=== PATIENT | male | born 1990 | race Caucasian/White ===

== ENCOUNTER 2022-08-13 20:44 | Inpatient (IN) | payer MEDICAID ==
[~2022-08-13] VITALS: Ht 170.2 cm; Wt 96.2 kg
[2022-08-13 21:10] VITALS: BP 119/81
--- NOTE | 2022-08-13 21:18 | NUR ---
PT TAKEN TO BED 5
--- NOTE | 2022-08-13 21:26 | NUR ---
Ultrasound at bedside.
--- NOTE | 2022-08-13 21:28 | NUR ---
Dr. Dominguez examining patient.
[2022-08-13 21:55] LABS: BASOPHILS # (AUTO) 0.1 K/uL (0.00-0.22); BASOPHILS % (AUTO) 0.6 % (0.0-2.0); EOSINOPHILS # (AUTO) 0.2 K/uL (0-0.4); EOSINOPHILS % (AUTO) 2.1 % (0.0-4.0); HEMATOCRIT 41.5 % (36-52); HEMOGLOBIN 13.6 g/dL (12.0-18.0); MEAN CORPUSCULAR HEMOGLOBIN 28 pg (27-31); MEAN CORPUSCULAR HGB CONC 33 g/dL (33-37); MEAN CORPUSCULAR VOLUME 86.2 fL (80-94); MONOCYTES # (AUTO) 0.9 K/uL (0.8-1.0); MONOCYTES % (AUTO) 9.9 % (1.7-9.3); NEUTROPHILS # (AUTO) 4.6 K/uL (1.8-7.7); NEUTROPHILS % (AUTO) 53.4 % (42.2-75.2); PLATELET COUNT (AUTO) 183 K/uL (140-450); RED BLOOD CELL COUNT(AUTO) 4.81 MIL/uL (4.20-6.10); WHITE BLOOD COUNT (AUTO) 8.7 K/uL (4.8-10.8)
--- NOTE | 2022-08-13 22:04 | NUR ---
X-Ray at bedside.
[2022-08-13 22:08] LABS: PROTHROMBIN TIME 10.6 secs (10.8-13.4)
[2022-08-13 22:11] LABS: ALBUMIN 3.6 g/dL (3.4-5.0); ANION GAP 16.8 (8-16); CARBON DIOXIDE 23.2 mmol/L (21-32); CREATININE 1.4 mg/dL (0.6-1.3); TOTAL BILIRUBIN 0.2 mg/dL (0.0-1.0)
--- NOTE | 2022-08-13 22:15 | NUR ---
Patient received on bed lying comfortably and awake. Alert and awake x4. No acute distress. Complained of right leg pain with scale of 7/10. Respirations even and unlabored.
[2022-08-13] MEDS ORDERED: NACL 0.9% 2,000 ML IV ONE (22:20)
[2022-08-13] MEDS ORDERED: MORPHINE SULFATE 2 MG/ML SYR IVP STA (22:40)
[2022-08-13] MEDS ORDERED: HEPARIN PER PHARMACY MC STA (23:07)
[2022-08-13] MEDS ORDERED: hePARIN / DEXT 5% PREMIX 250 ML IV ONE (23:10)
--- NOTE | 2022-08-13 23:15 | NUR ---
COVID-19 swabs collected and sent to lab.
[2022-08-13] MEDS ORDERED: hePARIN / DEXT 5% PREMIX 250 ML IV SCH (23:35)
[2022-08-13] MEDS ORDERED: ONDANSETRON 4 MG/2 ML VIAL IM/IVP PRN (23:35)
[2022-08-13] MEDS ORDERED: DOCUSATE SODIUM 100 MG GELCAP PO PRN (23:35)
[2022-08-13] MEDS ORDERED: POTASSIUM CHLORIDE 10 MEQ TABER PO PRN (23:35)
[2022-08-13] MEDS ORDERED: ZOLPIDEM 5 MG TAB PO PRN (23:35)
[2022-08-13] MEDS ORDERED: HYDROcodone/APAP 7.5/325 MG 1 TAB PO PRN (23:35)
[2022-08-13] MEDS ORDERED: HEPARIN PER PHARMACY MC PRN (23:35)
[2022-08-13] MEDS ORDERED: guaiFENesin DM 200/20 MG-10 ML 10 ML UDC PO PRN (23:35)
[2022-08-13] MEDS ORDERED: ACETAMINOPHEN 325 MG TAB PO PRN (23:35)
--- NOTE | 2022-08-14 00:06 | NUR ---
PT TAKEN TO RADIOLOGY
[2022-08-14 00:14] LABS: CHOL/HDL RATIO 5.4 (1-4.5); FREE T4 (FREE THYROXINE) 1.14 ng/dL (0.76-1.46); MAGNESIUM 1.7 mg/dL (1.8-2.4); PHOSPHORUS 3.5 mg/dL (2.5-4.9)
[2022-08-14 00:15] LABS: THYROID STIMULATING HORMONE 1.04 uIU/mL (0.34-3.74)
--- NOTE | 2022-08-14 00:26 | NUR ---
Patient returned back from CT scan.
[2022-08-14] MEDS: hePARIN / DEXT 5% PREMIX 250 ML IV SCH ×3 (00:28→16:59)
[2022-08-14 00:50] VITALS: BP 139/79
--- NOTE | 2022-08-14 00:50 | NUR ---
RECEIVED PATIENT FROM ED, CAME VIA GURNEY, PATIENT IS AWAKE, ALERT AND ORIENTED X4, IN NO ACUTE DISTRESS, ON ROOM AIR, DENIES PAIN. PATIENT ABLE TO WALK FROM GURNEY TO BED WITH STEADY GAIT. PATIENT'S DIAGNOSIS IS BILATERAL DVT. PATIENT IS ON HEPARIN DRIP, RATE 14ML/HR. IV ACCESS SITE ON RIGHT HAND AND LEFT AC G 20, PATENT AND INTACT. SKIN CHECK DONE, NO SKIN ISSUES NOTED. MRSA DONE. PATIENT ORIENTED TO ROOM SETTING. CALL LIGHT WITHIN REACH. ALL SAFETY MEASURES IN PLACE.
--- NOTE | 2022-08-14 00:57 | NUR ---
Patient will be admitted to care of Dr. Hickman. Admited to Telemetry. Will go to room 119B. Belongings list completed. Report to BRITTANY Rizo.
[2022-08-14] MEDS: NACL 0.9% 1,000 ML IV SCH ×4 (01:29→21:50)
--- NOTE | 2022-08-14 03:40 | NUR ---
DR. SCOTT LACKEY NOTIFIED THIS STAFF THAT PATIENT'S CT OF THE CHEST RESULT, PT HAS PULMONARY EMBOLISM. AT 0405, DR. LLAMAS WAS NOTIFIED OF THE RESULT. AWAITING RESPONSE. PATIENT ADVISED BED REST. PATIENT IS ON HEPARIN DRIP. WILL CONTINUE TO MONITOR THE PATIENT.
[2022-08-14 04:00] VITALS: BP 150/82
--- NOTE | 2022-08-14 05:30 | NUR ---
PATIENT IS ASLEEP, BREATHING EVEN AND NON LABORED, NO SIGNS OF PAIN NOTED. WILL CONTINUE TO MONITOR THE PATIENT.
--- NOTE | 2022-08-14 07:23 | NUR ---
ENDORSED PATIENT TO DAY NURSE FOR CONTINUITY OF CARE. PATIENT IN STABLE CONDITION.
[2022-08-14 07:49] LABS: BASOPHILS % (AUTO) 0.6 % (0.0-2.0); EOSINOPHILS # (AUTO) 0.2 K/uL (0-0.4); EOSINOPHILS % (AUTO) 2.6 % (0.0-4.0); HEMATOCRIT 35.6 % (36-52); HEMOGLOBIN 11.7 g/dL (12.0-18.0); LYMPHOCYTES # (AUTO) 3.3 K/uL (2.0-11.5); LYMPHOCYTES % (AUTO) 46.1 % (20.5-51.1); MEAN CORPUSCULAR HEMOGLOBIN 28 pg (27-31); MEAN CORPUSCULAR HGB CONC 33 g/dL (33-37); MEAN CORPUSCULAR VOLUME 85.8 fL (80-94); MONOCYTES # (AUTO) 0.5 K/uL (0.8-1.0); MONOCYTES % (AUTO) 6.5 % (1.7-9.3); NEUTROPHILS # (AUTO) 3.1 K/uL (1.8-7.7); NEUTROPHILS % (AUTO) 44.2 % (42.2-75.2); PLATELET COUNT (AUTO) 144 K/uL (140-450); RED BLOOD CELL COUNT(AUTO) 4.15 MIL/uL (4.20-6.10); WHITE BLOOD COUNT (AUTO) 7.1 K/uL (4.8-10.8)
[2022-08-14 07:53] LABS: ANION GAP 11.2 (8-16); CARBON DIOXIDE 20.8 mmol/L (21-32); CREATININE 0.8 mg/dL (0.6-1.3)
[2022-08-14 08:00] VITALS: BP 146/96
[2022-08-14] MEDS: PANTOPRAZOLE 40 MG TABEC PO SCH (08:43)
--- NOTE | 2022-08-14 10:57 | NUR ---
PATIENT HAS BEEN SCREENED AND CATEGORIZED MODERATE NUTRITION RISK. PATIENT WILL BE SEEN WITHIN 3-5 DAYS OF ADMISSION. REVIEWED BY ENMA RIDER RD
[2022-08-14 12:00] VITALS: BP 151/90
[2022-08-14] MEDS: SODIUM PHOS / POTASSIUM PHOS 1 PKT PDR PO SCH ×2 (13:36→16:46)
[2022-08-14] MEDS: FENOFIBRATE 48 MG TAB PO SCH (13:36)
[2022-08-14 16:00] VITALS: BP 155/105
--- NOTE | 2022-08-14 18:22 | NUR ---
OUTCOME SUMMARY VSS. AFEBRILE. TYLENOL X1 FOR LEFT THIGH PAIN WITH EFFECTIVE RELIEF. DENIES CP/SOB. HEPARIN GTTS CONTINUED, TITRATED PER PROTOCOL, NO S/SX OF BLEEDING. ALL NEEDS MET, SAFETY AND COMFORT MEASURES MAINTAINED, CALL LIGHT WITHIN REACH.
--- NOTE | 2022-08-14 19:40 | NUR ---
PT IS ON STABLE CONDITION,AWAKE AND ALERT. VERBALLY RESPONSIVE. HEPARIN DRIP IS ON LEFT AC, INTACT AND DRIPPING WELL AND NORMAL SALINE IS INFUSING WELL AT 135 ML/HR, INTACT AND PATENT. IV SITE WNL.
[2022-08-14 20:00] VITALS: BP 137/88
--- NOTE | 2022-08-14 22:34 | NUR ---
PT COMPLAINTS OF RIGHT LEG PAIN 5/10, PAIN MEDICATION NORCO ADMINISTERED ORDER.
--- NOTE | 2022-08-14 22:55 | NUR ---
PTT RESULTS = 96.2, HOLD HEPARIN DRIP FOR 1 HOUR PER ORDER.
--- NOTE | 2022-08-14 23:34 | NUR ---
PT IS ASLEEP.
[2022-08-15] VITALS: BP 140/94
--- NOTE | 2022-08-15 | NUR ---
HEPARIN TO DECREASE 200 UNITS WHEN TO STARTS RELATED TO PTT RESULTS OF 96.2 9 PREVIOUS HEPARIN 1600 UNITS). STARTS HEPARIN DRIP 1400 UNITS. PT IS ON STABLE CONDITION. AWAKE, ALERT AND VERBALLY RESPONSIVE.
--- NOTE | 2022-08-15 02:10 | NUR ---
PT IS SLEEPING. NO SOB OR DISTRESS. NO FACIAL GRIMACING.
[2022-08-15 04:00] VITALS: BP 138/89
--- NOTE | 2022-08-15 05:00 | NUR ---
PT IS STABLE, RESPIRATION EVEN WITH NO SOB OR DISTRESS. NO FACIAL GRIMACING.
[2022-08-15] MEDS: NACL 0.9% 1,000 ML IV SCH ×3 (05:15→20:05)
[2022-08-15 06:01] LABS: BASOPHILS % (AUTO) 0.5 % (0.0-2.0); EOSINOPHILS # (AUTO) 0.2 K/uL (0-0.4); EOSINOPHILS % (AUTO) 3.4 % (0.0-4.0); HEMATOCRIT 39.5 % (36-52); HEMOGLOBIN 13.1 g/dL (12.0-18.0); LYMPHOCYTES # (AUTO) 3.2 K/uL (2.0-11.5); LYMPHOCYTES % (AUTO) 52.2 % (20.5-51.1); MEAN CORPUSCULAR HEMOGLOBIN 28 pg (27-31); MEAN CORPUSCULAR HGB CONC 33 g/dL (33-37); MEAN CORPUSCULAR VOLUME 85.1 fL (80-94); MONOCYTES # (AUTO) 0.4 K/uL (0.8-1.0); MONOCYTES % (AUTO) 7.1 % (1.7-9.3); NEUTROPHILS # (AUTO) 2.3 K/uL (1.8-7.7); NEUTROPHILS % (AUTO) 36.8 % (42.2-75.2); PLATELET COUNT (AUTO) 168 K/uL (140-450); RED BLOOD CELL COUNT(AUTO) 4.65 MIL/uL (4.20-6.10); RED CELL DISTRIBUTION WIDTH 13.1 % (11.6-13.7); WHITE BLOOD COUNT (AUTO) 6.2 K/uL (4.8-10.8)
--- NOTE | 2022-08-15 07:40 | NUR ---
RECEIVED PT FROM NIGHT RN, PT IS AWAKE, ALERT AND ORIENTYED, LYING ON THE BED WITH SIDE RAILS UP AND CALL LIGHT WITHIN REACH, IV LINES NOTED ON THE LEFT AC G. 20 WITH HEPARIN ON CONTINUOUS DRIP AT A RATE OF 1400 UNITS/HR, AND ON THE RIGHT HAND G. 20 WITH NS INFUSING AT 135ML/HR, PT IS ON ROOM AIR AND NO SIGN OF BLEEDING AND DISTRESS NOTED, WILL MONITOR PT.
[2022-08-15 08:00] VITALS: BP 140/96
[2022-08-15 08:03] LABS: ANION GAP 12.3 (8-16); CARBON DIOXIDE 25.9 mmol/L (21-32); CREATININE 1.2 mg/dL (0.6-1.3); POTASSIUM 4.2 mmol/L (3.5-5.1)
[2022-08-15 08:08] LABS: T4 (THYROXINE) 8.5 ug/dL (4.5-12.0)
[2022-08-15] MEDS: PANTOPRAZOLE 40 MG TABEC PO SCH (08:54)
[2022-08-15] MEDS: ATORVASTATIN 20 MG TAB PO SCH (08:56)
[2022-08-15] MEDS: FENOFIBRATE 48 MG TAB PO SCH (08:56)
[2022-08-15] MEDS: SODIUM PHOS / POTASSIUM PHOS 1 PKT PDR PO SCH ×3 (08:56→18:04)
[2022-08-15] MEDS: MAGNESIUM OXIDE 400 MG TAB PO SCH (08:57)
[2022-08-15 12:00] VITALS: BP 136/81
[2022-08-15] MEDS: hePARIN / DEXT 5% PREMIX 250 ML IV SCH (14:25)
[2022-08-15 16:00] VITALS: BP 129/97
--- NOTE | 2022-08-15 19:30 | NUR ---
RECEIVED REPORT FROM DAY SHIFT NURSE JAYLENE FOR CONTINUITY OF CARE. PATIENT IS A&O X4. PATIENT IS ON RA; BREATHING IS NORMAL WITH SYMMETRICAL RISE AND FALL OF CHEST. IV IS A 20G R HAND, RUNNING NS 135; AND A 20G LAC RUNNING HEPARIN AT 1400 UNITS. NEXT BLOOD DRAW IS AT 0600. DAY SHIFT INFORMED ME THAT NO ADJUSTMENTS TO HEPARIN WERE NEEDED DURING DAY SHIFT WHICH CONSISTED OF TWO APTT BLOOD DRAWS. PATIENT IS SITTING UP IN HIGH-FOWLERS POSITION WATCHING TV ON HIS PHONE. BED IS IN LOWEST POSITION, WHEELS LOCKED, CALL LIGHT IN PLACE. WILL CONTINUE TO OBSERVE PATIENT.
--- NOTE | 2022-08-15 19:35 | NUR ---
ENDORSED PT TO NIGHT RN FOR CONTINUITY OF CARE, PT IS STABLE AT THIS TIME.
[2022-08-15 20:00] VITALS: BP 149/95
[2022-08-16] MEDS: NACL 0.9% 1,000 ML IV SCH ×2 (00:31→11:00)
--- NOTE | 2022-08-16 01:00 | NUR ---
PATIENT IS SLEEPING COMFORTABLY. HEPARIN AND NS ARE STILL RUNNING. BREATHING IS NORMAL WITH SYMMETRICAL RISE AND FALL OF CHEST. WILL CONTINUE TO OBSERVE PATIENT.
[2022-08-16] MEDS: hePARIN / DEXT 5% PREMIX 250 ML IV SCH (03:27)
[2022-08-16 04:00] VITALS: BP 138/90
--- NOTE | 2022-08-16 06:00 | NUR ---
PATIENT IS SLEEPING LYING SUPINE. BREATHING IS NORMAL WITH SYMMETRICAL RISE AND FALL OF CHEST. IV IS STILL RUNNING. WILL CONTINUE TO OBSERVE PATIENT.
[2022-08-16 07:01] LABS: BASOPHILS % (AUTO) 0.6 % (0.0-2.0); EOSINOPHILS # (AUTO) 0.2 K/uL (0-0.4); HEMATOCRIT 38.9 % (36-52); HEMOGLOBIN 13.1 g/dL (12.0-18.0); LYMPHOCYTES # (AUTO) 2.5 K/uL (2.0-11.5); LYMPHOCYTES % (AUTO) 42.8 % (20.5-51.1); MEAN CORPUSCULAR HEMOGLOBIN 28 pg (27-31); MEAN CORPUSCULAR HGB CONC 34 g/dL (33-37); MEAN CORPUSCULAR VOLUME 84.1 fL (80-94); MONOCYTES # (AUTO) 0.4 K/uL (0.8-1.0); MONOCYTES % (AUTO) 7.5 % (1.7-9.3); NEUTROPHILS # (AUTO) 2.6 K/uL (1.8-7.7); NEUTROPHILS % (AUTO) 46.1 % (42.2-75.2); PLATELET COUNT (AUTO) 178 K/uL (140-450); RED BLOOD CELL COUNT(AUTO) 4.62 MIL/uL (4.20-6.10); RED CELL DISTRIBUTION WIDTH 12.7 % (11.6-13.7); WHITE BLOOD COUNT (AUTO) 5.7 K/uL (4.8-10.8)
[2022-08-16 07:18] LABS: ANION GAP 11.5 (8-16); CARBON DIOXIDE 26.5 mmol/L (21-32); CREATININE 1.1 mg/dL (0.6-1.3)
--- NOTE | 2022-08-16 07:46 | NUR ---
ENDORSED TO DAY SHIFT NURSE JOANNE FOR CONTINUITY OF CARE. PATIENT IS STABLE. Addendum: 08/16/22 at 0748 by Chauncey Wagoner RN ENDORSED TO DAY SHIFT NURSE HAYDEN FOR CONTINUITY OF CARE. PATIENT IS STABLE.
[2022-08-16 08:00] VITALS: BP 135/85
[2022-08-16] MEDS ORDERED: RIVA20TA PO (09:27)
[2022-08-16] MEDS ORDERED: RIVA15TA1 PO (09:27)
[2022-08-16] MEDS: SODIUM PHOS / POTASSIUM PHOS 1 PKT PDR PO SCH (10:08)
[2022-08-16] MEDS: ATORVASTATIN 20 MG TAB PO SCH (10:12)
[2022-08-16] MEDS: PANTOPRAZOLE 40 MG TABEC PO SCH (10:12)
[2022-08-16] MEDS: MAGNESIUM OXIDE 400 MG TAB PO SCH (10:14)
[2022-08-16] MEDS: FENOFIBRATE 48 MG TAB PO SCH (10:14)
[2022-08-16 12:59] VITALS: BP 135/85
--- NOTE | 2022-08-16 13:10 | NUR ---
DC PLANNING MET WITH PT AT BEDSIDE, AND PROVIDED PT WITH [id number] AND PCP FOLLOW UP APPT; PROVIDED PT WITH APPT DETAILS; APPT IS SET FOR 08/21 AT 1030AM WITH AT 57[address] [facility] [id number], PATIENT ACCEPTED AND WAS APPRECIATIVE.
--- NOTE | 2022-08-16 14:13 | NUR ---
DISCHARGE PATIENT IN STABLE CONDITION TO HOME PER PCP ORDER; DISCHARGE INSTRUCTION GIVE TO PATIENT, DISCHARGE CONSENT SIGN, IV ACCESS & WRIST BAND REMOVE PRIOR PATIENT LEAVE THE FACILITY
== END 2022-08-16 13:58 | disposition home or self-care (01) | DRG 134 ==
LOC: MED 20:44 → MTU 23:18
PROVIDERS: ADMIT Family Medicine; ATTEND Family Medicine
DX: I26.99 Other pulmonary embolism without acute cor pulmonale (principal); N17.0 Acute kidney failure with tubular necrosis; R65.11 Systemic inflammatory response syndrome (SIRS) of non-infectious origin with acute organ dysfunction; E87.1 Hypo-osmolality and hyponatremia; I82.412 Acute embolism and thrombosis of left femoral vein; E11.65 Type 2 diabetes mellitus with hyperglycemia; D68.51 Activated protein C resistance; E78.5 Hyperlipidemia, unspecified; I82.533 Chronic embolism and thrombosis of popliteal vein, bilateral; Z20.822 Contact with and (suspected) exposure to COVID-19; I82.492 Acute embolism and thrombosis of other specified deep vein of left lower extremity; E87.6 Hypokalemia; E83.42 Hypomagnesemia; Z79.4 Long term (current) use of insulin; Z91.198 Patient's noncompliance with other medical treatment and regimen for other reason
CPT/HCPCS: 36415; 71045; 71275; 80048; 80053; 82150; 83036; 83690; 83735; 83880; 84100; 84436; 84439; 84443; 84479; 84484; 85025; 85610; 85730; 87081; 93005; 93970; 96361; 96374; 96375; 99291; J1644; J2270; Q0092; Q9967

== ENCOUNTER 2023-02-01 13:39 | Emergency (ER) | payer MEDICAID, OTHER ==
[~2023-02-01] VITALS: Ht 170.2 cm; Wt 86.2 kg
[~2023-02-01 13:39] MED LIST: RIVA15TA1 PO; RIVA20TA PO
[2023-02-01 13:43] VITALS: BP 147/85; PULSE 105; RESP 14; TEMP 98.3; O2SAT 100
[2023-02-01 15:03] LABS: BASOPHILS # (AUTO) 0.1 K/uL (0.00-0.22); BASOPHILS % (AUTO) 0.9 % (0.0-2.0); EOSINOPHILS # (AUTO) 0.1 K/uL (0-0.4); EOSINOPHILS % (AUTO) 1.3 % (0.0-4.0); HEMOGLOBIN 14.2 g/dL (12.0-18.0); LYMPHOCYTES # (AUTO) 2.7 K/uL (2.0-11.5); LYMPHOCYTES % (AUTO) 30.5 % (20.5-51.1); MEAN CORPUSCULAR HEMOGLOBIN 29 pg (27-31); MEAN CORPUSCULAR HGB CONC 33 g/dL (33-37); MEAN CORPUSCULAR VOLUME 87.2 fL (80-94); MONOCYTES # (AUTO) 0.6 K/uL (0.8-1.0); MONOCYTES % (AUTO) 6.2 % (1.7-9.3); NEUTROPHILS # (AUTO) 5.5 K/uL (1.8-7.7); NEUTROPHILS % (AUTO) 61.1 % (42.2-75.2); PLATELET COUNT (AUTO) 207 K/uL (140-450); RED BLOOD CELL COUNT(AUTO) 4.93 MIL/uL (4.20-6.10); RED CELL DISTRIBUTION WIDTH 13.7 % (11.6-13.7)
[2023-02-01 15:17] LABS: ANION GAP 12.2 (8-16); CALCIUM 9.7 mg/dL (8.5-10.1); CARBON DIOXIDE 28.8 mmol/L (21-32); CREATININE 1.3 mg/dL (0.6-1.3)
[2023-02-01] MEDS ORDERED: ONDANSETRON 4 MG/2 ML VIAL ONE (17:16)
[2023-02-01 17:34] VITALS: BP 141/88; PULSE 82; RESP 18; TEMP 98; O2SAT 98
== END 2023-02-01 17:34 | disposition home or self-care (01) ==
LOC: MED 13:39
DX: R06.02 Shortness of breath (principal); R07.9 Chest pain, unspecified; R05.9 Cough, unspecified; Z86.718 Personal history of other venous thrombosis and embolism; Z79.899 Other long term (current) drug therapy
CPT/HCPCS: 36415; 71045; 71275; 80048; 84484; 85025; 93005; 99285; J2405; Q9967

== ENCOUNTER 2023-10-24 09:39 | Emergency (ER) | payer OTHER ==
[~2023-10-24] VITALS: Ht 167.6 cm; Wt 90.9 kg
[2023-10-24 09:50] VITALS: BP 118/81; PULSE 85; RESP 17; TEMP 97.8
== END 2023-10-24 10:24 | disposition home or self-care (01) ==
LOC: MED 09:39
DX: R07.89 Other chest pain (principal); Z86.718 Personal history of other venous thrombosis and embolism; Z79.899 Other long term (current) drug therapy
CPT/HCPCS: 93005; 99283